=== PATIENT | male | born 1985 | race Caucasian/White ===

== ENCOUNTER 2018-04-19 19:51 | Emergency (ER) | payer OTHER ==
[~2018-04-19] VITALS: Ht 185.4 cm; Wt 166.7 kg
[~2018-04-19 19:51] MED LIST: ASPIRIN325 MG PO; NOHOMEMEDS; ZESTRIL10 MG PO
[2018-04-19 20:33] LABS: HEMOGLOBIN 14.5 G/DL (12.5-16.6); MCH 29.6 PG (29.0-34.0); MCHC 34.5 G/DL (30.0-36.0); MCV 85.7 FL (86-99); PLATELET COUNT 251 K/uL (156-360); RBC DIS.WIDTH-CV 13.9 % (11.8-14.6); RBC DIS.WIDTH-SD 43.1 % (39-53); WHITE BLOOD COUNT 11.1 K/uL (4.1-10.2)
[2018-04-19 20:41] LABS: ALBUMIN 4.1 g/dL (3.2-4.8); CHLORIDE 109 mEq/L (99-109); POTASSIUM 3.8 mEq/L (3.7-5.4); SODIUM 142 mEq/L (136-147)
[2018-04-19 20:44] LABS: GLUCOSE 83 mg/dL (70-99); TOTAL PROTEIN 7.7 g/dL (6.4-8.3)
[2018-04-19 20:46] LABS: TOTAL BILIRUBIN 0.4 mg/dL (0.0-1.0)
[2018-04-19 20:47] LABS: ALKALINE PHOSPHATASE 125 IU/L (3-129); CREATININE 0.9 mg/dL (0.6-1.3); GFR ESTIMATE (CALCULATED) > 59 mL/min/ (58.99-99999)
[2018-04-19 20:48] LABS: UREA NITROGEN (BUN) 14 mg/dL (9-23)
[2018-04-19 20:49] LABS: AST (GOT) 19 IU/L (2-34)
[2018-04-19 20:50] LABS: ALT (GPT) 26 IU/L (3-49)
[2018-04-19 20:58] LABS: TROP-I INTERPRETATION NEGATIVE; TROPONIN-I < 0.01 ng/mL (0.0-0.30)
[2018-04-20 00:24] LABS: TROP-I INTERPRETATION NEGATIVE; TROPONIN-I < 0.01 ng/mL (0.0-0.30)
[2018-04-20 01:17] VITALS: BP 141/75
== END 2018-04-20 01:34 | disposition home or self-care (01) ==
LOC: EME 19:51
PROVIDERS: Nurse Practitioner Family
DX: R07.89 Other chest pain (principal); R10.13 Epigastric pain; I49.3 Ventricular premature depolarization; I10 Essential (primary) hypertension; J45.909 Unspecified asthma, uncomplicated; F17.200 Nicotine dependence, unspecified, uncomplicated
CPT/HCPCS: 71046; 80053; 84484; 85027; 93005; 99281; 99285